=== PATIENT | male | born 1940 | race Caucasian/White ===

== ENCOUNTER 2017-04-04 18:56 | Emergency (ER) | payer MEDICARE ==
[~2017-04-04] VITALS: Ht 172.7 cm; Wt 72.6 kg
--- NOTE | 2017-04-04 19:19 | NUR ---
PT AMBUALTORY TO ER BED 7 C/O BILATERAL LOWER EXTREMITY SWELLIMG X 4 DAYS. PT AOX4 RR EVEN AND UNLABORED. NO SOB NOTED. NAD NOTED. NO NVD AT THIS TIME. PT GOWNED AND PLACED ON MONITOR PT DENIES ANY TRAUMA. PT WAITING FOR MD KAUFMAN.
--- NOTE | 2017-04-04 19:21 | NUR ---
DR. NGUYEN AT BEDSIDE FOR EVAL.
--- NOTE | 2017-04-04 19:43 | NUR ---
LAB AT BEDSIDE FOR BLOOD DRAW.
[2017-04-04 19:55] LABS: BASOPHILS % (AUTO) 0.6 % (0.0-2.0); EOSINOPHILS # (AUTO) 0.2 /CMM (0.0-0.7); EOSINOPHILS % (AUTO) 3.1 % (0.0-6.0); HEMATOCRIT 38 % (39-51); HEMOGLOBIN 13.3 g/dL (13.5-17.5); LYMPHOCYTES # (AUTO) 1.5 /CMM (0.8-4.8); LYMPHOCYTES % (AUTO) 21.5 % (20.0-44.0); MEAN CORPUSCULAR HEMOGLOBIN 32 PG (26.0-33.0); MEAN CORPUSCULAR HGB CONC 35 g/dl (31.0-36.0); MEAN CORPUSCULAR VOLUME 92 fL (80-96); MONOCYTES # (AUTO) 0.6 /CMM (0.1-1.30); MONOCYTES % (AUTO) 8.3 % (2.0-12.0); NEUTROPHILS # (AUTO) 4.8 /CMM (1.8-8.9); NEUTROPHILS % (AUTO) 66.5 % (43.0-81.0); PLATELET COUNT (AUTO) 164 /CMM (150-450); RDW COEFFICIENT OF VARIATION 12.2 (11.5-15.0); RED BLOOD CELL COUNT(AUTO) 4.18 MIL/uL (4.5-6.0); WHITE BLOOD COUNT (AUTO) 7.1 K/uL (4.3-11.0)
--- NOTE | 2017-04-04 19:59 | NUR ---
XRAY AT BEDSIDE
[2017-04-04 20:01] LABS: INR 1.16 (0.87-1.13); PROTHROMBIN TIME 12.2 SECS (9.5-12.7)
[2017-04-04 20:03] LABS: CALCIUM, SERUM 8.4 mg/dL (8.5-10.1); CARBON DIOXIDE 27 mmol/L (21-32); CHLORIDE 108 mmol/L (98-107); CREATININE 1.2 mg/dL (0.6-1.3); GLUCOSE 79 mg/dL (74-106); POTASSIUM 3.7 mmol/L (3.5-5.1); SODIUM SERUM 143 mmol/L (136-145); UREA NITROGEN, BLOOD 18 mg/dL (7-18)
[2017-04-04 20:06] LABS: TROPONIN I < 0.017 ng/mL (0.00-0.056)
[2017-04-04 20:15] LABS: ALANINE AMINOTRANSFERASE 50 U/L (12-78); ALBUMIN 3.6 g/dL (3.4-5.0); ALKALINE PHOSPHATASE 59 U/L (46-116); ASPARTATE AMINOTRANSFERASE 32 U/L (15-37); B-TYPE NATRIURETIC PEPTIDE 308 PG/ML (0-125); BILIRUBIN,DIRECT 0.2 mg/dL (0.0-0.2); BILIRUBIN,TOTAL 0.6 mg/dL (0.2-1.0); TOTAL PROTEIN, SERUM 6.1 g/dL (6.4-8.2)
[2017-04-04] MEDS ORDERED: FUROSEMIDE 20 MG/2 ML VIAL ONE (20:28)
[2017-04-04] MEDS ORDERED: FUROSEMIDE 20 MG/2 ML VIAL IV ONE (20:30)
--- NOTE | 2017-04-04 20:36 | NUR ---
JUAN GOTTI DVT AT BEDSIDE
--- NOTE | 2017-04-04 21:25 | NUR ---
DR. NGUYEN AT BEDSIDE SPEAKING TO PT REGARDING RESULTS.
[2017-04-04] MEDS ORDERED: hydrALAZINE HCL IV 20 MG VIAL ONE (21:38)
--- NOTE | 2017-04-04 21:45 | NUR ---
IV removed. Catheter intact and site benign. Pressure and 4x4 applied to site. No bleeding noted. Patient discharged to home in stable condition. Written and verbal after care instructions given. Patient verbalizes understanding of instruction. ambulatory with a steady gait. instructed pt not to drive. pt verbalize understanding.
[2017-04-04 21:46] VITALS: BP 161/62
[2017-04-04] MEDS ORDERED: hydrALAZINE HCL IV 20 MG VIAL IM ONE (22:00)
[2017-04-04] MEDS ORDERED: hydrALAZINE HCL IV 20 MG VIAL IV ONE (22:00)
== END 2017-04-04 21:48 | disposition home or self-care (01) ==
LOC: ER 18:58
DX: R60.0 Localized edema (principal); E78.00 Pure hypercholesterolemia, unspecified; I10 Essential (primary) hypertension
CPT/HCPCS: 36415; 71010-TC; 80048-TC; 80076-TC; 83880; 84484-TC; 85025-TC; 85730-TC; 93970-TC; A4606; J0360; J1940; Z7610